=== PATIENT | male | born 1965 | race Caucasian/White ===

== ENCOUNTER → 2017-05-12 | Outpatient (CLI) | payer OTHER ==
[2017-05-12 09:54] LABS: ALBUMIN 4.2 gm/dl (3.4-5.0); ALT/SGPT 41 U/L (12-78); BLOOD UREA NITROGEN 15 mg/dl (7-18); CARBON DIOXIDE 28 mmol/L (21-32); CHOLESTEROL 185 mg/dl (0-200); CREATININE 1.01 mg/dl (0.60-1.40); GLUCOSE 110 mg/dl (70-99); SODIUM 135 mmol/L (136-145)
[2017-05-12 09:57] LABS: ALKALINE PHOSPHATASE 69 U/L (45-117); AST/SGOT 25 U/L (15-37); LDL CHOLESTEROL CALCULATED 91 mg/dl; TOTAL PROTEIN 7.4 gm/dl (6.4-8.2)
== END | disposition home or self-care (01) ==
LOC: C.LAB 06:27
PROVIDERS: ATTEND Family Medicine
DX: E78.5 Hyperlipidemia, unspecified (principal)

== ENCOUNTER → 2017-06-28 | Outpatient (CLI) | payer OTHER ==
[2017-06-28 06:50] LABS: ALBUMIN 3.8 gm/dl (3.4-5.0); TOTAL PROTEIN 7.3 gm/dl (6.4-8.2)
== END | disposition home or self-care (01) ==
LOC: C.LAB 05:56
PROVIDERS: ATTEND Family Medicine
DX: E78.1 Pure hyperglyceridemia (principal)